=== PATIENT | female | born 1940 | race Caucasian/White ===

== ENCOUNTER → 2016-12-01 | Outpatient (CLI) | payer OTHER | LOC: FIMAGING 16:19 | PROVIDERS: ATTEND Internal Medicine Cardiovascular Disease | DX: J44.9 Chronic obstructive pulmonary disease, unspecified (principal); I42.9 Cardiomyopathy, unspecified; Z95.0 Presence of cardiac pacemaker ==

== ENCOUNTER 2018-12-21 11:34 | Emergency (ER) | payer OTHER | END 2018-12-21 14:39 | disposition home or self-care (01) ==

== ENCOUNTER 2018-12-22 09:30 | Inpatient (IN) | payer OTHER | END 2018-12-24 17:06 | disposition home or self-care (01) | LOC: F2W 13:50 ==